=== PATIENT | female | born 1985 | race Caucasian/White ===

== ENCOUNTER 2017-08-23 17:33 | Outpatient (CLI) | payer OTHER ==
[~2017-08-23] VITALS: Ht 170.2 cm; Wt 105.9 kg
[~2017-08-23 17:33] MED LIST: IBUP-1222 PO; OXYC-302 PO; PREN1TAB27 PO
[2017-08-23 17:46] VITALS: BP 123/70
== END 2017-08-23 19:15 | disposition home or self-care (01) ==
LOC: LDOP 17:33
PROVIDERS: ATTEND Obstetrics & Gynecology
DX: O36.8130 Decreased fetal movements, third trimester, not applicable or unspecified (principal); O10.913 Unspecified pre-existing hypertension complicating pregnancy, third trimester; O99.343 Other mental disorders complicating pregnancy, third trimester; F32.9 Major depressive disorder, single episode, unspecified; Z3A.00 Weeks of gestation of pregnancy not specified
CPT/HCPCS: 59025; 76819; 99201; 99211; G0463

== ENCOUNTER 2017-09-11 23:03 | Inpatient (IN) | payer OTHER ==
[~2017-09-11] VITALS: Ht 170.2 cm; Wt 107.0 kg
[2017-09-11] MEDS ORDERED: LACTATED RINGERS 1,000 ML IV SCH (23:16)
[2017-09-11] MEDS ORDERED: OXYTOCIN 30U/ 0.9% NaCL 500ML 500 ML IV PRN (23:16)
[2017-09-11] MEDS ORDERED: OXYTOCIN 30U/ 0.9% NaCL 500ML 500 ML IV ONE (23:16)
[2017-09-11] MEDS ORDERED: FENTANYL PF 100 MCG/2ML IV PRN (23:30)
[2017-09-11] MEDS ORDERED: ONDANSETRON 2MG/ML, 2ML IVPush PRN (23:30)
[2017-09-11] MEDS ORDERED: CALCIUM CARBONATE 500 MG TAB.CHEW PO PRN (23:30)
[2017-09-11] MEDS ORDERED: OXYTOCIN 30U/ 0.9% NaCL 500ML 500 ML ONE (23:40)
[2017-09-11] MEDS ORDERED: MISOPROSTOL 200 MCG TABLET ONE (23:40)
[2017-09-11 23:53] LABS: HEMATOCRIT 37.2 % (34.6-47.8); HEMOGLOBIN 12.5 g/dL (11.7-16.4); WHITE BLOOD COUNT 10.4 x10^3/uL (3.4-10)
[2017-09-12 00:25] VITALS: BP 122/68
[2017-09-12] MEDS ORDERED: PLEASE ENTER HEIGHT AND WEIGHT MC SCH (00:30)
[2017-09-12] MEDS ORDERED: FENTANYL PF 100 MCG/2ML ONE ×2 (18:01→19:05)
[2017-09-12] MEDS: FENTANYL PF 100 MCG/2ML IVPush PRN ×2 (18:04→19:09)
[2017-09-12] MEDS ORDERED: D5%-LACTATED RINGERS 1,000 ML IV SCH (18:22)
[2017-09-12] MEDS ORDERED: IBUPROFEN 600 MG TABLET ONE (19:43)
[2017-09-12] MEDS ORDERED: OXYcodone/APAP 5/325MG TABLET ONE (19:43)
[2017-09-12] MEDS ORDERED: MISOPROSTOL 200 MCG TABLET PR PRN (20:00)
[2017-09-12] MEDS ORDERED: METHYLERGONOVINE 0.2 MG/ML IM PRN (20:00)
[2017-09-12] MEDS ORDERED: ONDANSETRON 2MG/ML, 2ML IV PRN (20:00)
[2017-09-12] MEDS ORDERED: ACETAMINOPHEN 325 MG TABLET PO PRN ×2 (20:00)
[2017-09-12] MEDS: IBUPROFEN 600 MG TABLET PO PRN (20:07)
[2017-09-12] MEDS: OXYcodone/APAP 5/325MG TABLET PO PRN (20:07)
[2017-09-12] MEDS ORDERED: OXYTOCIN 30U/ 0.9% NaCL 500ML 500 ML ONE (20:08)
[2017-09-12] MEDS: OXYTOCIN 30U/ 0.9% NaCL 500ML 500 ML IV SCH (20:09)
[2017-09-12 21:25] VITALS: BP 128/82
[2017-09-12] MEDS: DOCUSATE 100 MG CAPSULE PO PRN (21:42)
[2017-09-12] MEDS ORDERED: DIPH,PERTUSS(ACELL),TET VAC/PF NC IM-VACC ONE (22:30)
[2017-09-12 23:30] VITALS: BP 126/84
[2017-09-13] MEDS: IBUPROFEN 600 MG TABLET PO PRN ×4 (01:57→20:12)
[2017-09-13 03:08] LABS: HEMATOCRIT 32.9 % (34.6-47.8); HEMOGLOBIN 11.1 g/dL (11.7-16.4); WHITE BLOOD COUNT 11.7 x10^3/uL (3.4-10)
[2017-09-13] MEDS: OXYcodone/APAP 5/325MG TABLET PO PRN ×5 (04:04→20:12)
[2017-09-13 04:05] VITALS: BP 106/70
[2017-09-13] MEDS: OXYTOCIN 30U/ 0.9% NaCL 500ML 500 ML IV SCH (05:52)
[2017-09-13] MEDS ORDERED: FLU VACC QS2017-18 (36MOS+) UP/PF 0.5 ML IM-VACC ONE (06:00)
[2017-09-13] MEDS: DOCUSATE 100 MG CAPSULE PO PRN ×2 (08:20→20:12)
[2017-09-13 08:35] VITALS: BP 113/71
[2017-09-13] MEDS ORDERED: PRENATAL VIT/IRON/FA 1 EACH TABLET PO SCH (09:00)
[2017-09-13 12:32] VITALS: BP 117/71
[2017-09-13] MEDS ORDERED: IBUP-1222 PO (14:08)
[2017-09-13] MEDS ORDERED: OXYC-302 PO (14:09)
[2017-09-13] MEDS ORDERED: HYDR25SU21 PR (14:11)
[2017-09-13 16:30] VITALS: BP 112/70
[2017-09-13 19:15] VITALS: BP 113/67
== END 2017-09-13 20:05 | disposition home or self-care (01) | DRG 775 ==
LOC: EDIP 23:03 → LDIP 23:14 → 2NW 09-12 21:10
PROVIDERS: ADMIT Obstetrics & Gynecology; ATTEND Obstetrics & Gynecology
PROC: 10E0XZZ Delivery of Products of Conception, External Approach (ICD-10-PCS; principal; 2017-09-12)
PROC: 3E0P3VZ Introduction of Hormone into Female Reproductive, Percutaneous Approach (ICD-10-PCS; 2017-09-12)
DX: O80 Encounter for full-term uncomplicated delivery (principal); Z37.0 Single live birth; Z3A.39 39 weeks gestation of pregnancy
CPT/HCPCS: 36415; 85025; 86850; 86900; 89060; 90686; 90715; J3010; J2590; Q0114

== ENCOUNTER 2018-09-25 13:43 | Outpatient (CLI) | payer OTHER ==
[~2018-09-25] VITALS: Ht 170.2 cm; Wt 107.7 kg
[2018-09-25 13:15] VITALS: BP 109/55
[~2018-09-25 13:43] MED LIST changes: +HYDR25SU21 PR
== END 2018-09-25 14:30 | disposition home or self-care (01) ==
LOC: LDOP 13:43
PROVIDERS: ATTEND Obstetrics & Gynecology
DX: O26.893 Other specified pregnancy related conditions, third trimester (principal); Z3A.30 30 weeks gestation of pregnancy; R10.9 Unspecified abdominal pain
CPT/HCPCS: 59025; 99211; G0463

== ENCOUNTER 2018-11-09 04:38 | Inpatient (IN) | payer OTHER ==
[~2018-11-09] VITALS: Ht 170.2 cm; Wt 107.7 kg
[2018-11-09] MEDS ORDERED: OXYTOCIN 30U/ 0.9% NaCL 500ML 500 ML IV PRN ×2 (04:53)
[2018-11-09] MEDS ORDERED: D5%-LACTATED RINGERS 1,000 ML IV SCH (04:53)
[2018-11-09] MEDS ORDERED: OXYTOCIN 30U/ 0.9% NaCL 500ML 500 ML IV ONE (04:53)
[2018-11-09] MEDS ORDERED: FENTANYL PF 100 MCG/2ML IV PRN (05:00)
[2018-11-09] MEDS ORDERED: CALCIUM CARBONATE 500 MG TAB.CHEW PO PRN (05:00)
[2018-11-09] MEDS ORDERED: ONDANSETRON 2MG/ML, 2ML IVPush PRN ×2 (05:00→15:30)
[2018-11-09 05:26] LABS: BASOPHILS # (AUTO) 0.02 x10^3/uL (0-0.1); BASOPHILS % (AUTO) 0 % (0-1); EOSINOPHILS # (AUTO) 0.08 x10^3/uL (0-0.4); EOSINOPHILS % (AUTO) 1 % (1-7); LYMPHOCYTES # (AUTO) 1.39 x10^3/uL (1-3.4); LYMPHOCYTES % (AUTO) 21 % (22-44); MD NO; MEAN CORPUSCULAR HGB CONC 33.9 g/dL (32.4-35.8); MEAN CORPUSCULAR VOLUME 88.6 fL (80-100); MONOCYTES # (AUTO) 0.47 x10^3/uL (0.2-0.8); MONOCYTES % (AUTO) 7 % (2-9); NEUTROPHILS # (AUTO) 4.71 x10^3/uL (1.8-6.8); NEUTROPHILS % (AUTO) 71 % (42-75); PLATELET COUNT 174 x10^3/uL (130-400); RED BLOOD COUNT 4.32 x10^6/uL (3.82-5.3); RED CELL DISTRIBUTION WIDTH 14.4 % (9.6-15.2)
[2018-11-09] MEDS: LACTATED RINGERS 1,000 ML IV SCH ×2 (05:30→13:43)
[2018-11-09] MEDS ORDERED: PLEASE ENTER HEIGHT AND WEIGHT MC SCH ×3 (05:30→16:00)
[2018-11-09] MEDS ORDERED: OXYTOCIN 30U/ 0.9% NaCL 500ML 500 ML ONE ×2 (05:30→17:13)
[2018-11-09] MEDS ORDERED: NEWBORN KIT ONE (05:31)
[2018-11-09] MEDS ORDERED: FENTANYL PF 100 MCG/2ML ONE ×2 (12:47→13:40)
[2018-11-09] MEDS: FENTANYL PF 100 MCG/2ML IVPush PRN ×2 (12:49→13:43)
[2018-11-09] MEDS ORDERED: FENTANYL/BUPIV./NS/PF 250 ML EPIDCONT SCH ×2 (13:51→15:12)
[2018-11-09] MEDS ORDERED: LACTATED RINGERS 1,000 ML INTUTE SCH (14:00)
[2018-11-09] MEDS ORDERED: LACTATED RINGERS 1,000 ML INTUTE PRN (14:00)
[2018-11-09] MEDS ORDERED: FENTANYL PF 500 MCG, BUPIVACAINE/PF 0.5%, 30ML 62.5 ML in SODIUM CHLORIDE 0.9% 177.5 ML EPIDCONT SCH (14:00)
[2018-11-09] MEDS ORDERED: BUPIVACAINE 0.25% ONE (14:47)
[2018-11-09] MEDS ORDERED: LACTATED RINGERS 1,000 ML IV SCH (15:12)
[2018-11-09] MEDS ORDERED: LACTATED RINGERS 1,000 ML IVBOLUS PRN (15:30)
[2018-11-09] MEDS ORDERED: NALOXONE 0.4 MG/ML, 1ML IVPush PRN (15:30)
[2018-11-09] MEDS ORDERED: DIPHENHYDRAMINE 50 MG/ML, 1ML IVPush PRN (15:30)
[2018-11-09] MEDS ORDERED: EPHEDRINE 50 MG/ML, 1ML IVPush PRN (15:30)
[2018-11-09] MEDS ORDERED: ACETAMINOPHEN 325 MG TABLET PO PRN (16:00)
[2018-11-09] MEDS ORDERED: MISOPROSTOL 200 MCG TABLET PR PRN (16:00)
[2018-11-09] MEDS ORDERED: METHYLERGONOVINE 0.2 MG/ML IM PRN (16:00)
[2018-11-09] MEDS ORDERED: ONDANSETRON 2MG/ML, 2ML IV PRN (16:00)
[2018-11-09] MEDS ORDERED: IBUPROFEN 600 MG TABLET ONE (17:05)
[2018-11-09] MEDS ORDERED: OXYcodone/APAP 5/325MG TABLET ONE (17:05)
[2018-11-09] MEDS: OXYcodone/APAP 5/325MG TABLET PO PRN ×2 (17:07→20:19)
[2018-11-09] MEDS: OXYTOCIN 30U/ 0.9% NaCL 500ML 500 ML IV SCH (17:08)
[2018-11-09 20:00] VITALS: BP 121/83
[2018-11-09] MEDS: DOCUSATE 100 MG CAPSULE PO PRN (20:18)
[2018-11-10 00:30] VITALS: BP 107/57
[2018-11-10] MEDS: OXYcodone/APAP 5/325MG TABLET PO PRN ×6 (01:47→23:14)
[2018-11-10] MEDS: IBUPROFEN 600 MG TABLET PO PRN ×4 (01:47→23:14)
[2018-11-10] MEDS: OXYTOCIN 30U/ 0.9% NaCL 500ML 500 ML IV SCH ×3 (01:47→21:47)
[2018-11-10 06:08] LABS: BASOPHILS # (AUTO) 0.02 x10^3/uL (0-0.1); BASOPHILS % (AUTO) 0 % (0-1); EOSINOPHILS # (AUTO) 0.26 x10^3/uL (0-0.4); EOSINOPHILS % (AUTO) 3 % (1-7); LYMPHOCYTES # (AUTO) 1.19 x10^3/uL (1-3.4); LYMPHOCYTES % (AUTO) 14 % (22-44); MD NO; MEAN CORPUSCULAR HEMOGLOBIN 30.6 pg (27.0-34.8); MEAN CORPUSCULAR HGB CONC 34.1 g/dL (32.4-35.8); MEAN CORPUSCULAR VOLUME 89.7 fL (80-100); MONOCYTES # (AUTO) 0.55 x10^3/uL (0.2-0.8); MONOCYTES % (AUTO) 7 % (2-9); NEUTROPHILS # (AUTO) 6.31 x10^3/uL (1.8-6.8); NEUTROPHILS % (AUTO) 76 % (42-75); PLATELET COUNT 150 x10^3/uL (130-400); RED BLOOD COUNT 4.06 x10^6/uL (3.82-5.3); RED CELL DISTRIBUTION WIDTH 14.5 % (9.6-15.2)
[2018-11-10 07:30] VITALS: BP 136/83
[2018-11-10] MEDS: PRENATAL VIT/IRON/FA 1 EACH TABLET PO SCH (08:28)
[2018-11-10] MEDS: DOCUSATE 100 MG CAPSULE PO PRN ×2 (08:28→23:14)
[2018-11-10 12:15] VITALS: BP 121/80
[2018-11-10] MEDS ORDERED: PLEASE ENTER HEIGHT AND WEIGHT MC SCH ×2 (13:30→23:00)
[2018-11-10] MEDS ORDERED: CALCIUM CARBONATE 500 MG TAB.CHEW ONE (14:13)
[2018-11-10] MEDS: CALCIUM CARBONATE 500 MG TAB.CHEW PO PRN ×2 (14:17→18:15)
[2018-11-10] MEDS ORDERED: DIPH,PERTUSS(ACELL),TET VAC/PF NC IM-VACC ONE ×2 (14:22→14:30)
[2018-11-10] MEDS ORDERED: OXYcodone IR 5MG TABLET PO PRN (20:00)
[2018-11-10 20:27] VITALS: BP 116/79
[2018-11-11] MEDS: IBUPROFEN 600 MG TABLET PO PRN (05:05)
[2018-11-11 07:25] VITALS: BP 135/82
[2018-11-11] MEDS: CALCIUM CARBONATE 500 MG TAB.CHEW PO PRN (09:24)
[2018-11-11] MEDS: OXYcodone/APAP 5/325MG TABLET PO PRN (09:24)
[2018-11-11] MEDS: PRENATAL VIT/IRON/FA 1 EACH TABLET PO SCH (09:25)
[2018-11-11] MEDS: DOCUSATE 100 MG CAPSULE PO PRN (09:25)
== END 2018-11-11 10:38 | disposition home or self-care (01) | DRG 807 ==
LOC: LDIP 04:38 → 2NW 17:50
PROVIDERS: ADMIT Obstetrics & Gynecology; ATTEND Obstetrics & Gynecology
PROC: 10E0XZZ Delivery of Products of Conception, External Approach (ICD-10-PCS; principal; 2018-11-09)
PROC: 3E0R3BZ Introduction of Anesthetic Agent into Spinal Canal, Percutaneous Approach (ICD-10-PCS; 2018-11-09)
PROC: 00HU33Z Insertion of Infusion Device into Spinal Canal, Percutaneous Approach (ICD-10-PCS; 2018-11-09)
PROC: 10907ZC Drainage of Amniotic Fluid, Therapeutic from Products of Conception, Via Natural or Artificial Opening (ICD-10-PCS; 2018-11-09)
PROC: 3E033VJ Introduction of Other Hormone into Peripheral Vein, Percutaneous Approach (ICD-10-PCS; 2018-11-09)
PROC: 10H07YZ Insertion of Other Device into Products of Conception, Via Natural or Artificial Opening (ICD-10-PCS; 2018-11-09)
DX: O24.420 Gestational diabetes mellitus in childbirth, diet controlled (principal); Z37.0 Single live birth; O14.04 Mild to moderate pre-eclampsia, complicating childbirth; Z3A.37 37 weeks gestation of pregnancy; Z82.49 Family history of ischemic heart disease and other diseases of the circulatory system; Z83.3 Family history of diabetes mellitus; Z84.1 Family history of disorders of kidney and ureter
CPT/HCPCS: 36415; 82803; 85025; 86850; 86900; 90715; G0378; J3010; J2590; J7120